=== PATIENT | female | born 1940 | race Native Hawaiian/Other Pacific Islander ===

== ENCOUNTER 2016-11-17 13:26 | Outpatient (CLI) | payer MEDICARE ==
--- NOTE | 2016-11-18 13:23 | Fluoroscopy Report ---
CYSTOGRAM VOIDING History: Vaginal enterocele Findings: 300 cc of water-soluble contrast was infused into the bladder via a Raygoza catheter. No bladder mass or filling defect is appreciated. Minimal trabeculation of the bladder wall is suspected. No evidence for vesicoureteral reflux. Fluoroscopic images were obtained during urination. There is apparent normal emptying of the bladder with a small postvoid residual estimated at 10 cc. The urethra is not clearly identified on the [facility] images. There is no gross urethral abnormality. Impression: Unremarkable voiding cystogram.
--- NOTE | 2016-11-21 09:04 | Magnetic Resonance Report ---
MRI PELVIS WITHOUT CONTRAST: 11/17/16 13:26:00 CLINICAL: Enterocele. TECHNIQUE: Sagittal, coronal and axial T1 and T2 fat sat sequences on a 1.5 Amarilys magnet. Images were apparently obtained without straining and there is no indication of any images obtained with straining. FINDINGS: Status post hysterectomy.The urinary bladder is normal with normal position of the bladder neck. The vagina is normal. There is a moderate enterocele in the rectovaginal space.The rectum contains no fluid and is nondistended with a relatively thick wall. The aramis-posterior width of the levator hiatus is slightly greater than normal and measures 5.6 cm. The vertical descent of the levator hiatus is 2.4 cm which is also slightly greater than normal. No adnexal mass. No free fluid. IMPRESSION: Moderate relaxation and moderate size enterocele.
== END 2016-11-17 13:27 | disposition home or self-care (01) ==
LOC: FLUORO 13:26 → OPU 13:26 → FLUORO 13:27
PROVIDERS: ATTEND Urology
DX: N81.5 Vaginal enterocele (principal)
CPT/HCPCS: 51600; 51702; 72195; 74455; Q9958